=== PATIENT | male | born 1985 | race Caucasian/White ===

== ENCOUNTER 2017-01-22 21:10 | Emergency (ER) | payer OTHER, SELFPAY ==
[~2017-01-22] VITALS: Ht 182.9 cm; Wt 113.4 kg
[2017-01-22 21:10] VITALS: BP 142/69
[~2017-01-22 21:10] MED LIST: CELE20TA OR; LOTRIMIN CREAM TOP; NICO21DI4 TD; TEGR200T OR; TRAZ50TA OR
[2017-01-22] MEDS ORDERED: TETANUS/DIPHTHERIA TOX ADSORB ADULT 0.5ML SYR/VIAL (90714) IM ONE (22:15)
[2017-01-22] MEDS ORDERED: AUGM875T27 PO (22:17)
[2017-01-22] MEDS ORDERED: ADACEL/BOOSTRIX VACCINE (DIPHTH/PERTUSS/ACELL/TETANUS)0.5ML SYR (90715) IM ONE (22:30)
--- NOTE | 2017-01-23 01:02 | REP ---
Clinical: Trauma. Bite injury to 5th digit. Technique: AP, lateral, bilateral oblique views right hand. Findings: The osseous structures and joint spaces are intact and normal. There is no evidence for acute fracture or dislocation. Surrounding soft tissues are unremarkable. No subcutaneous emphysema or radiodense foreign body. Impression: Normal examination. No acute fracture or dislocation. Signed by Valente Villeda MD 01/23/2017 12:52 A
== END 2017-01-22 22:53 | disposition home or self-care (01) ==
LOC: M ED 22:22
DX: S61.451A Open bite of right hand, initial encounter (principal); W54.0XXA Bitten by dog, initial encounter; Y92.830 Public park as the place of occurrence of the external cause; Y93.89 Activity, other specified; Y99.8 Other external cause status; F17.210 Nicotine dependence, cigarettes, uncomplicated

== ENCOUNTER 2019-11-17 20:09 | Emergency (ER) | payer SELFPAY ==
[~2019-11-17] VITALS: Ht 182.9 cm; Wt 127.3 kg
[~2019-11-17 20:09] MED LIST changes: +AUGM875T28 PO
[2019-11-17] MEDS: FLUORESCEIN OPHTH 1 MG STRIP OD ONE (22:26)
[2019-11-17] MEDS: TETRACAINE 0.5% OPHTH SOLN 4ML OD ONE (22:26)
[2019-11-17] MEDS ORDERED: ERYTHROMYCIN OPHTH OINT OD ONE (22:45)
[2019-11-17 23:01] VITALS: BP 130/77
== END 2019-11-17 23:07 | disposition home or self-care (01) ==
LOC: M ED 20:09
DX: S05.01XA Injury of conjunctiva and corneal abrasion without foreign body, right eye, initial encounter (principal); W22.8XXA Striking against or struck by other objects, initial encounter; Y92.89 Other specified places as the place of occurrence of the external cause; Y93.89 Activity, other specified; Y99.8 Other external cause status; F17.210 Nicotine dependence, cigarettes, uncomplicated

== ENCOUNTER 2020-07-23 14:32 | Emergency (ER) | payer MEDICAID, OTHER, SELFPAY ==
[~2020-07-23] VITALS: Ht 182.9 cm; Wt 135.3 kg
--- NOTE | 2020-07-23 15:21 | REP ---
INDICATION: LLE swelling; r/o DVT. COMPARISON: None. TECHNIQUE: Duplex left lower extremity venous sonography. FINDINGS: The deep veins are anechoic and fully compressible from the groin to the popliteal fossa in the left lower extremity. Color flow imaging is homogeneous. Spectral Doppler interrogation demonstrates intact respiratory variation in flow and normal manual augmentation of flow. There is no evidence of deep vein thrombosis. IMPRESSION: Negative left lower extremity duplex venous ultrasound. No evidence of deep vein thrombosis. <Electronically signed by Robb Horn > 07/23/20 [id number]
--- NOTE | 2020-07-23 15:59 | REP ---
INDICATION: cough COMPARISON: 01/23/2016. TECHNIQUE: PA/Lateral FINDINGS: Lungs: Clear, no infiltrate. Small stable calcified granuloma is seen in the left upper lobe. Heart: Normal in size. Mediastinum: Mediastinal silhouette unremarkable. Pleural angles: Unremarkable.. Bones and soft tissues: Unremarkable. IMPRESSION: No acute pulmonary disease. <Electronically signed by Mickey Muñiz > 07/23/20 0355
[2020-07-23] MEDS ORDERED: NICO21DI31 TOP (16:18)
[2020-07-23 16:29] VITALS: BP 139/96
== END 2020-07-23 16:29 | disposition home or self-care (01) ==
LOC: M ED 14:32
DX: R22.42 Localized swelling, mass and lump, left lower limb (principal); R05 Cough; F17.210 Nicotine dependence, cigarettes, uncomplicated

== ENCOUNTER 2020-10-23 06:39 | Emergency (ER) | payer OTHER ==
[~2020-10-23] VITALS: Ht 182.9 cm; Wt 122.7 kg
[~2020-10-23 06:39] MED LIST changes: +NICO1DIS12 TOP
[2020-10-23 06:40] VITALS: BP 148/75
--- OUTSIDE RECORDS SUMMARY | 2020-10-23 06:45 | CCD ---
Author Author [facility] Organization [facility] Address Unknown Phone Unavailable Support Name Relationship Address Phone UMER TREVIZO Next Of Kin [address] [place] [address] [employer] Next Of Kin [address] [place] [address] [employer] Next Of Kin [address] [place] [address] UMER FELTON Next Of Kin [address] [place] [address] UE Next Of Kin Unknown Unavailable LILA MAIER Next Of Kin [address] [place] [address] Re-disclosure Warning The records that you are about to access may contain information from federally-assisted alcohol or drug abuse programs. If such information is present, then the following federally mandated warning applies: This information has been disclosed to you from records protected by federal confidentiality rules (42 CFR part 2). The federal rules prohibit you from making any further disclosure of this information unless further disclosure is expressly permitted by the written consent of the person to whom it pertains or as otherwise permitted by 42 CFR part 2. A general authorization for the release of medical or other information is NOT sufficient for this purpose. The Federal rules restrict any use of the information to criminally investigate or prosecute any alcohol or drug abuse patient.The records that you are about to access may contain highly sensitive health information, the redisclosure of which is protected by Article 27-F of the [place] State Public Health law. If you continue you may have access to information: Regarding HIV / AIDS; Provided by facilities licensed or operated by the [facility] Office of Mental Health; or Provided by the [facility] Office for People With Developmental Disabilities. If such information is present, then the following [facility] mandated warning applies: This information has been disclosed to you from confidential records which are protected by state law. State law prohibits you from making any further disclosure of this information without the specific written consent of the person to whom it pertains, or as otherwise permitted by law. Any unauthorized further disclosure in violation of state law may result in a fine or assisted sentence or both. A general authorization for the release of medical or other information is NOT sufficient authorization for further disc losure. Insurance Providers Payer name Policy type / Coverage type Policy ID Covered libertarian ID Covered libertarian's relationship to trinidad Policy [place] Plan Information [facility] COMMUNITY PLAN [facility] [id number] SP [id number] [facility]) O [id number] S [id number] [facility] COMMUNITY PLAN [facility] [id number] SP [id number] EMEDNY [id number] SP [id number] [facility] COMMUNITY PLAN [facility] [id number] SP [id number] SELF PAY ONLY [id number] SP [id number] [facility]) O [id number] S [id number] MEDICAID [id number] SP [id number] SELF PAY UNAVAILABLE SP UNAVAILA BLE
--- OUTSIDE RECORDS SUMMARY | 2020-10-23 07:42 | CCD ---
Author Author [facility] Organization [facility] Address Unknown Phone Unavailable Support Name Relationship Address Phone UMER TREVIZO Next Of Kin [address] [place] [address] [employer] Next Of Kin [address] [place] [address] [employer] Next Of Kin [address] [place] [address] UMER FELTON Next Of Kin [address] [place] [address] UE Next Of Kin Unknown Unavailable LIVIER LILA Next Of Kin [address] [place] [address] Re-disclosure Warning The records that you are [...] is protected by Article 27-F of the [place] State Public Health law. If you continue you may have access to information: Regarding HIV / AIDS; Provided by facilities licensed or operated by the [facility] Office of Mental Health; or Provided by the [facility] Office for People With Developmental Disabilities. If such information is present, then the following [facility] mandated warning applies: This information has been [...] law may result in a fine or intermediate sentence or both. A general authorization for the release of medical or other information is NOT sufficient authorization for further disc losure. Insurance Providers Payer name Policy type / Coverage type Policy ID Covered democrat ID Covered democrat's relationship to trinidad Policy [place] Plan Information [facility] [id number] SP [id number] [facility] O [id number] S [id number] [facility] COMMUN[facility] [id number] SP [id number] EMEDNY [id number] SP [id number] [facility] [id number] SP [id number] SELF PAY ONLY [id number] SP [id number] [facility]) O [id number] S [id number] MEDICAID [id number] SP [id number] SELF PAY UNAVAILABLE SP UNAVAILA BLE
[2020-10-23] MEDS ORDERED: KETO2CR TOP (08:01)
== END 2020-10-23 08:07 | disposition home or self-care (01) ==
LOC: M ED 06:39
DX: L21.9 Seborrheic dermatitis, unspecified (principal); F17.210 Nicotine dependence, cigarettes, uncomplicated; F17.220 Nicotine dependence, chewing tobacco, uncomplicated; F12.20 Cannabis dependence, uncomplicated

== ENCOUNTER 2020-10-28 05:00 | Emergency (ER) | payer OTHER ==
[~2020-10-28] VITALS: Ht 182.9 cm; Wt 129.0 kg
[2020-10-28 05:00] VITALS: BP 133/80
[~2020-10-28 05:00] MED LIST changes: +KETO2CR TOP
[2020-10-28] MEDS ORDERED: PRED20TA PO (06:18)
== END 2020-10-28 06:25 | disposition home or self-care (01) ==
LOC: M ED 05:00
DX: L21.9 Seborrheic dermatitis, unspecified (principal); F17.210 Nicotine dependence, cigarettes, uncomplicated

== ENCOUNTER → 2020-11-29 | Outpatient (REF) | payer OTHER ==
[~2020-11-29] MED LIST changes: +PRED20TA PO
[2020-11-29 13:23] LABS: BASO # 0.1 10^3/uL (0.0-0.2); BASO % 0.7 % (0.0-1.0); EOS # 0.1 10^3/uL (0.0-0.5); EOS % 0.4 % (0.0-3.0); HEMATOCRIT 52.9 % (42.0-52.0); HEMOGLOBIN 16.9 g/dl (13.5-17.5); LYMPH # 2.7 10^3/uL (1.5-5.0); LYMPH % 20.1 % (24.0-44.0); MEAN CORPUSCULAR HEMOGLOBIN 28.9 pg (27.0-33.0); MEAN CORPUSCULAR HGB CONC 31.9 g/dl (32.0-36.5); MEAN CORPUSCULAR VOLUME 90.4 fl (80.0-96.0); MONO # 0.6 10^3/uL (0.0-0.8); MONO % 4.5 % (2.0-8.0); NEUTROPHILS # 9.8 10^3/uL (1.5-8.5); NEUTROPHILS % 73.1 % (36.0-66.0); PLATELET COUNT, AUTOMATED 225 10^3/uL (150-450); RED BLOOD COUNT 5.85 10^6/uL (4.30-6.10); WHITE BLOOD COUNT 13.4 10^3/uL (4.0-10.0)
[2020-11-29 14:22] LABS: ALBUMIN 3.7 GM/DL (3.2-5.2); ALT/SGPT 79 U/L (12-78); BILIRUBIN,TOTAL 0.3 MG/DL (0.2-1.0); BLOOD UREA NITROGEN 12 MG/DL (7-18); CALCIUM LEVEL 9.2 MG/DL (8.5-10.1); CARBON DIOXIDE LEVEL 27 MEQ/L (21-32); CHLORIDE LEVEL 104 MEQ/L (98-107); CREATININE FOR GFR 0.86 MG/DL (0.70-1.30); GLOMERULAR FILTRATION RATE > 60.0 (>60); GLUCOSE, FASTING 84 MG/DL (70-100); POTASSIUM SERUM 4.4 MEQ/L (3.5-5.1); SODIUM LEVEL 138 MEQ/L (136-145); TOTAL PROTEIN 7.6 GM/DL (6.4-8.2)
== END ==
LOC: M LAB REF 12:24
PROVIDERS: ATTEND Pediatrics
DX: Z76.89 Persons encountering health services in other specified circumstances (principal)

== ENCOUNTER → 2020-12-21 | Outpatient (REF) | payer OTHER ==
[2020-12-21 17:13] LABS: BASO # 0.1 10^3/uL (0.0-0.2); BASO % 0.4 % (0.0-1.0); EOS # 0.1 10^3/uL (0.0-0.5); EOS % 0.8 % (0.0-3.0); HEMATOCRIT 50.4 % (42.0-52.0); HEMOGLOBIN 16.5 g/dl (13.5-17.5); LYMPH # 2.9 10^3/uL (1.5-5.0); LYMPH % 19.8 % (24.0-44.0); MEAN CORPUSCULAR HEMOGLOBIN 29.4 pg (27.0-33.0); MEAN CORPUSCULAR HGB CONC 32.7 g/dl (32.0-36.5); MEAN CORPUSCULAR VOLUME 89.7 fl (80.0-96.0); MONO # 0.7 10^3/uL (0.0-0.8); NEUTROPHILS # 10.6 10^3/uL (1.5-8.5); NEUTROPHILS % 73.3 % (36.0-66.0); PLATELET COUNT, AUTOMATED 185 10^3/uL (150-450); RED BLOOD COUNT 5.62 10^6/uL (4.30-6.10); WHITE BLOOD COUNT 14.5 10^3/uL (4.0-10.0)
[2020-12-21 17:16] LABS: ALBUMIN 3.9 GM/DL (3.2-5.2); ALT/SGPT 70 U/L (12-78); BILIRUBIN,DIRECT 0.1 MG/DL (0.0-0.2); BILIRUBIN,TOTAL 0.4 MG/DL (0.2-1.0); CHOLESTEROL LEVEL 201 MG/DL (<200); CHOLESTEROL RISK RATIO 3.865 (<5); FERRITIN 127 NG/ML (26-388); HDL CHOLESTEROL 52 MG/DL (>40); LDL CHOLESTEROL 122 MG/DL (<100); NON-HDL-C 149 MG/DL; TOTAL PROTEIN 7.4 GM/DL (6.4-8.2); TRIGLYCERIDES LEVEL 135 MG/DL (<150)
[2020-12-21 17:33] LABS: HEPATITIS B SURFACE ANTIGEN NEGATIVE (NEGATIVE)
[2020-12-21 17:48] LABS: HEMOGLOBIN A1c 5.6 %
[2020-12-21 18:00] LABS: HEPATITIS B CORE ANTIBODY IGM NEGATIVE (NEGATIVE); HEPATITIS C VIRUS ABY INDEX < 0.0 INDEX (<0.8)
[2020-12-21 18:03] LABS: HEPATITIS A ANTIBODY IGM NEGATIVE (NEGATIVE)
== END ==
LOC: M LAB REF 16:22
PROVIDERS: ATTEND Pediatrics
DX: R74.01 Elevation of levels of liver transaminase levels (principal); D72.828 Other elevated white blood cell count; E66.01 Morbid (severe) obesity due to excess calories

== ENCOUNTER → 2020-12-29 | Outpatient (CLI) | payer OTHER ==
--- NOTE | 2020-12-29 08:18 | REP ---
INDICATION: ELEVATED LIVER ENZYMES COMPARISON: None. TECHNIQUE: Real time rice scale ultrasound examination using curved array transducer. FINDINGS: Examination is limited due to body habitus and associated technical factors. Limited views of the liver suggests fatty infiltration. Pancreas is incompletely evaluated. The gallbladder is normal and without gallstones, wall thickening, or pericholecystic fluid. No obvious biliary ductal dilatation is appreciated although the common bile duct is not definitively visualized. Right kidney is incompletely evaluated although no obvious hydronephrosis is appreciated. IMPRESSION: Markedly limited examination. Consider CT of the abdomen and pelvis if symptoms persist. <Electronically signed by Valente Villeda > 12/29/20 0804
== END ==
LOC: M RAD 07:16
PROVIDERS: ATTEND Pediatrics
DX: R74.01 Elevation of levels of liver transaminase levels (principal)

== ENCOUNTER → 2022-03-15 | Outpatient (CLI) | payer BC ==
[~2022-03-15] MED LIST changes: +GASTROGRAFIN SOLUTION 30ML (Q9963) As Ordered ONE; +ISOVUE-370 76% 100ML VIAL As Ordered ONE
== END ==
LOC: M RAD 08:41
PROVIDERS: ATTEND Pediatrics
DX: R10.11 Right upper quadrant pain (principal)
CPT/HCPCS: 74177; Q9963; Q9967

== ENCOUNTER → 2022-03-30 | Outpatient (REF) | payer BC, OTHER ==
[~2022-03-30] MED LIST changes: -GASTROGRAFIN SOLUTION 30ML (Q9963) As Ordered ONE; -ISOVUE-370 76% 100ML VIAL As Ordered ONE
== END ==
LOC: M SFHCDERM 14:28
PROVIDERS: ATTEND Nurse Practitioner Family
DX: D48.9 Neoplasm of uncertain behavior, unspecified (principal); D22.9 Melanocytic nevi, unspecified

== ENCOUNTER → 2022-10-18 | Outpatient (REF) | payer BC, OTHER ==
[2022-10-18 17:30] LABS: BASO # 0.1 10^3/uL (0.0-0.2); BASO % 0.7 % (0.0-1.0); EOS # 0.3 10^3/uL (0.0-0.5); EOS % 2.8 % (0.0-3.0); HEMATOCRIT 50.4 % (42.0-52.0); HEMOGLOBIN 16.7 g/dl (13.5-17.5); LYMPH # 3.6 10^3/uL (1.5-5.0); MEAN CORPUSCULAR HEMOGLOBIN 29.5 pg (27.0-33.0); MEAN CORPUSCULAR HGB CONC 33.1 g/dl (32.0-36.5); MONO # 0.8 10^3/uL (0.0-0.8); NEUTROPHILS # 5.1 10^3/uL (1.5-8.5); NEUTROPHILS % 51.5 % (36.0-66.0); PLATELET COUNT, AUTOMATED 186 10^3/uL (150-450); RED BLOOD COUNT 5.66 10^6/uL (4.30-6.10)
[2022-10-18 17:52] LABS: ERYTHROCYTE SEDIMENTATION RATE 39 mm/hr (0-15)
[2022-10-18 18:11] LABS: ALBUMIN 3.7 G/DL (3.2-5.2); ALKALINE PHOSPHATASE 98 U/L (46-116); ALT/SGPT 52 U/L (7.0-40); AST/SGOT 32 U/L (<34); BILIRUBIN,TOTAL 0.2 MG/DL (0.3-1.2); BLOOD UREA NITROGEN 14 MG/DL (9-23); CALCIUM LEVEL 8.9 MG/DL (8.5-10.1); CARBON DIOXIDE LEVEL 29 MMOL/L (20-31); CHLORIDE LEVEL 102 MMOL/L (98-107); CREATININE FOR GFR 0.74 MG/DL (0.70-1.30); GLOMERULAR FILTRATION RATE > 60.0 (>60); GLUCOSE, FASTING 103 MG/DL (60-100); POTASSIUM SERUM 4.1 MMOL/L (3.5-5.1); SODIUM LEVEL 136 MMOL/L (136-145); TOTAL PROTEIN 7.2 G/DL (5.7-8.2)
[2022-10-18 19:55] LABS: HEMOGLOBIN A1c 5.6 % (4.0-6.0)
== END ==
LOC: M LAB REF 16:54
PROVIDERS: ATTEND Pediatrics
DX: E66.3 Overweight (principal); R10.9 Unspecified abdominal pain; R70.0 Elevated erythrocyte sedimentation rate

== ENCOUNTER → 2022-10-31 | Outpatient (CLI) | payer BC, OTHER | LOC: M RAD 09:24 | PROVIDERS: ATTEND Pediatrics | DX: R10.9 Unspecified abdominal pain (principal) ==

== ENCOUNTER → 2023-03-16 | Outpatient (CLI) | payer MEDICAID, OTHER ==
[2023-03-16 10:13] LABS: APPEARANCE, URINE CLEAR (CLEAR); BACTERIA, URINE AUTO NEGATIVE (NEGATIVE); BILIRUBIN, URINE AUTO NEGATIVE (NEGATIVE); BLOOD, URINE BLOOD NEGATIVE (NEGATIVE); COLOR, URINE YELLOW (YELLOW); GLUCOSE, URINE (UA) AUTO NEGATIVE (NEGATIVE); KETONE, URINE AUTO NEGATIVE (NEGATIVE); LEUKOCYTE ESTERASE, URINE AUTO NEGATIVE (NEGATIVE); MUCUS, URINE SMALL (NEGATIVE); NITRITE, URINE AUTO NEGATIVE (NEGATIVE); PROTEIN, URINE AUTO NEGATIVE (NEGATIVE); RBC, URINE AUTO 0 /HPF (0-3); SPECIFIC GRAVITY URINE AUTO 1.021 (1.002-1.035); SQUAMOUS EPITHELIAL CELL UR AU 0 /HPF (0-6); UROBILINOGEN, URINE AUTO 0.2 mg/dL (0.0-2.0); WBC, URINE AUTO 1 /HPF (0-3)
[2023-03-16 10:30] LABS: HEMOGLOBIN A1c 6.2 % (4.0-6.0)
[2023-03-16 10:36] LABS: CHOLESTEROL RISK RATIO 5.49 (<5); HDL CHOLESTEROL 37.7 MG/DL (>40); LDL CHOLESTEROL 126.3 MG/DL (<100); NON-HDL-C 169.3 MG/DL
[2023-03-16 10:38] LABS: THYROID STIMULATING HORMONE 4.698 uIU/ML (0.55-4.78)
[2023-03-16 11:46] LABS: GC DNA AMPLIFICATION NEGATIVE (NEGATIVE)
== END ==
LOC: M LAB 08:54
PROVIDERS: ATTEND Pediatrics
DX: E66.01 Morbid (severe) obesity due to excess calories (principal); R70.0 Elevated erythrocyte sedimentation rate; E78.5 Hyperlipidemia, unspecified

== ENCOUNTER → 2023-03-23 | Outpatient (CLI) | payer OTHER, MEDICAID | LOC: M RAD 14:48 | PROVIDERS: ATTEND Pediatrics | DX: A18.89 Tuberculosis of other sites (principal) ==

== ENCOUNTER → 2023-03-23 | Outpatient (REF) | payer OTHER, MEDICAID ==
[2023-03-23 17:16] LABS: BASO # 0.1 10^3/uL (0.0-0.2); BASO % 0.7 % (0.0-1.0); EOS # 0.3 10^3/uL (0.0-0.5); EOS % 3.1 % (0.0-3.0); HEMATOCRIT 50.4 % (42.0-52.0); HEMOGLOBIN 16.8 g/dl (13.5-17.5); LYMPH # 3.5 10^3/uL (1.5-5.0); MEAN CORPUSCULAR HEMOGLOBIN 29.5 pg (27.0-33.0); MEAN CORPUSCULAR HGB CONC 33.3 g/dl (32.0-36.5); MEAN CORPUSCULAR VOLUME 88.4 fl (80.0-96.0); MONO # 0.7 10^3/uL (0.0-0.8); MONO % 7.6 % (2.0-8.0); NEUTROPHILS % 51.6 % (36.0-66.0); PLATELET COUNT, AUTOMATED 208 10^3/uL (150-450); WHITE BLOOD COUNT 9.7 10^3/uL (4.0-10.0)
[2023-03-23 17:54] LABS: ERYTHROCYTE SEDIMENTATION RATE 55 mm/hr (0-15)
== END ==
LOC: M LAB REF 16:26
PROVIDERS: ATTEND Pediatrics
DX: R70.0 Elevated erythrocyte sedimentation rate (principal); A18.89 Tuberculosis of other sites

== ENCOUNTER → 2023-10-29 | Outpatient (REF) | payer OTHER ==
[2023-10-29 18:54] LABS: ALBUMIN 3.8 G/DL (3.2-5.2); ALKALINE PHOSPHATASE 99 U/L (46-116); ALT/SGPT 49 U/L (7.0-40); AST/SGOT 28 U/L (<34); BILIRUBIN,TOTAL 0.3 MG/DL (0.3-1.2); BLOOD UREA NITROGEN 8 MG/DL (9-23); CALCIUM LEVEL 9.1 MG/DL (8.5-10.1); CARBON DIOXIDE LEVEL 28 MMOL/L (20-31); CHLORIDE LEVEL 100 MMOL/L (98-107); CHOLESTEROL LEVEL 182 MG/DL (<200); CHOLESTEROL RISK RATIO 4.61 (<5); CREATININE FOR GFR 0.69 MG/DL (0.70-1.30); GLOMERULAR FILTRATION RATE > 60.0 (>60); GLUCOSE, FASTING 62 MG/DL (60-100); HDL CHOLESTEROL 39.4 MG/DL (>40); LDL CHOLESTEROL 103.8 MG/DL (<100); NON-HDL-C 142.6 MG/DL; POTASSIUM SERUM 4.2 MMOL/L (3.5-5.1); SODIUM LEVEL 135 MMOL/L (136-145); TOTAL PROTEIN 7.5 G/DL (5.7-8.2); TRIGLYCERIDES LEVEL 194 MG/DL (<150)
[2023-10-29 18:55] LABS: THYROID STIMULATING HORMONE 5.472 uIU/ML (0.55-4.78)
== END ==
LOC: M LAB REF 16:50
PROVIDERS: ATTEND Pediatrics
DX: K76.0 Fatty (change of) liver, not elsewhere classified (principal); E78.5 Hyperlipidemia, unspecified